=== PATIENT | male | born 1950 | race Caucasian/White ===

== ENCOUNTER 2017-08-04 09:48 | Day surgery (SDC) | payer OTHER ==
[2017-08-04] MEDS ORDERED: BACITRACIN IRRIGATION/NS 50,000 UNITS/1,000 ML BTL IRR ONE (09:50)
[2017-08-04] MEDS ORDERED: NS 1,000 ML IV ONE (09:50)
[2017-08-04] MEDS ORDERED: DIAZEPAM 5 MG TAB PO ONE (09:50)
[2017-08-04] MEDS ORDERED: diphenhydrAMINE 25 MG CAP PO ONE (09:50)
[2017-08-04] MEDS ORDERED: ceFAZolin 2 GM/SWFI 2 GM/20 ML SYR IVP ONE (09:50)
--- NOTE | 2017-08-04 10:14 | CPEKG ---
Heart Rate: 59 RR Interval: 1017 P-R Interval: 204 QRSD Interval: 94 QT Interval: 408 QTC Interval: 405 P [place]: 22 QRS [place]: 54 T Wave [place]: 12 EKG Severity - ABNORMAL ECG - EKG Impression: VENTRICULAR-PACED COMPLEXES EKG Impression: SINUS RHYTHM UNDERLYING RHYTHM EKG Impression: PREMATURE ATRIAL CONTRACTION Electronically Signed By: Jie Strange 04-Aug-2017 11:11:11
[2017-08-04 10:31] LABS: PLATELET COUNT 196 10^3/uL (150-400)
[2017-08-04 10:40] LABS: INR 1.1 (0.83-1.16); PROTIME(PATIENT) 14.4 SEC (12.0-15.0)
--- NOTE | 2017-08-04 11:18 | PDPROPOC ---
Sedation Plan of Care Sedation Plan of Care: vital signs stable, mental status noted, patient educated of risks, benefits, alternatives, patient can tolerate sedation ASA Classification: ASA 2 Planned drugs: fentanyl, midazolam Mallampati Score: Class 1 Mallampati Reference Image: Patient passed 3-3-2 rule?: Yes
--- NOTE | 2017-08-04 11:18 | PDHPUP ---
History & Physical Update H&P update statement: This history and physical update is based on an assessment of the patient which was completed after admission or registration (within 24 hours), but prior to the surgery/procedure. H&P update: H&P reviewed & patient examined, no change in patient's condition since H&P completed
[2017-08-04] MEDS ORDERED: LIDO/EPI 1% **for epidural** 30 ML SDV ONE (11:36)
[2017-08-04] MEDS ORDERED: BUPIVACAINE 0.5% 30 ML SDV ONE (11:36)
[2017-08-04] MEDS ORDERED: MIDAZOLAM 2 MG/2 ML VIAL ONE (11:36)
[2017-08-04] MEDS ORDERED: fentaNYL 100 MCG/2 ML INJ ONE (11:36)
[2017-08-04] MEDS ORDERED: LIDOCAINE 1% 300 MG/30 ML SDV ONE (11:36)
--- NOTE | 2017-08-04 13:42 | PDCTREPORT ---
Cardiothoracic Procedure Rpt Cardiothoracic Procedure Report: Procedure: Generator change. Indications device at end of life in the setting of complete heart block. After obtaining informed consent patient was brought in the fasting state to the cardiac catheterization lab. The old pacemaker site was sterilely prepped and draped. The scar was anesthetized with 2% xylocaine. Using a 10 blade an incision was made through the scar tissue. Using the Bovie catheter and and blunt dissection the old pocket was entered the device delivered to the field. Set screws were removed. The device was removed from the field. Leads were tested. Appropriate sensitivities and thresholds were confirmed. Pocket was copiously irrigated. New device was delivered to the field and attached to the leads. Set screws were tightened per industry standards. The system was coiled into the pocket. A three-layer closure was used to close the incision. Conclusions successful pacemaker generator change. For details of the device and sensitivities please see the attached company report.
--- NOTE | 2017-08-04 14:09 | CPEKG ---
Heart Rate: 61 RR Interval: 984 P-R Interval: 220 QRSD Interval: 100 QT Interval: 412 QTC Interval: 415 P [place]: 22 QRS [place]: 70 T Wave [place]: -1 EKG Severity - ABNORMAL ECG - EKG Impression: ATRIAL-PACED COMPLEXES EKG Impression: FIRST DEGREE AV BLOCK EKG Impression: BORDERLINE INFERIOR Q WAVES Electronically Signed By: Jie Strange 04-Aug-2017 16:42:17
== END 2017-08-04 15:04 | disposition home or self-care (01) ==
LOC: FCATH 09:48
PROVIDERS: ATTEND Internal Medicine Interventional Cardiology
PROC: 0JH606Z Insertion of Pacemaker, Dual Chamber into Chest Subcutaneous Tissue and Fascia, Open Approach (ICD-10-PCS; principal; 2017-08-04)
PROC: 0JPT0PZ Removal of Cardiac Rhythm Related Device from Trunk Subcutaneous Tissue and Fascia, Open Approach (ICD-10-PCS; principal; 2017-08-04)
DX: Z45.010 Encounter for checking and testing of cardiac pacemaker pulse generator [battery] (principal); I44.2 Atrioventricular block, complete; I10 Essential (primary) hypertension; E78.5 Hyperlipidemia, unspecified; E66.9 Obesity, unspecified; Z68.37 Body mass index [BMI] 37.0-37.9, adult; Z95.0 Presence of cardiac pacemaker
CPT/HCPCS: C1785; J0690; J2250; J3010